=== PATIENT | male | born 1955 | race Caucasian/White ===

== ENCOUNTER → 2018-12-28 | Day surgery (SDC) | payer MEDICAID, OTHER ==
[~2018-12-28] MED LIST: ACET325C5 PO; ALBU2.5V8 NEB; AMOX1TAB58 PO; ASPI81TA59 PO; ATEN50TA PO; BUDE0.5A NEB; CETI10TA16 PO; CETI10TA22 PO; CYAN10005 PO; DEXT15DR5 EACHEYE; DOCU-109 PO; DULO60CA6 PO; FAMO20TA5 PO; FERR325T14 PO; FLUT9.9S NS; GABA600T PO; GUAI600T47 PO; HYDR-3164 PO; HYDROmorphone 2 MG/ML VIAL IV PRN; IV RINGERS,LACTATED 1000ML 1,000 ML IV SCH; LACT1CAP19 PO; LISI10TA2 PO; LOPE1LIQ7 PO; MORPHINE SULFATE 2 MG/ML VIAL. IV PRN; NAPR-683 PO; NEOM1PAC TP; NIFE30TA17 PO; ONDANSETRON PF 4 MG/2 ML VIAL. IV PRN; POLY17PO28 PO; POTA20TA82 PO; PRED50TA PO; PROCHLORPERAZINE 10 MG/2 ML VIAL. IV PRN; PROPOFOL 20 ML IV ONE; PROPOFOL 40 ML IV ONE; SITA100T PO; UMEC1DIS IH; [UNRECOGNIZED DRUG - CODE] TP; fentaNYL PF VIAL 100 MCG/2 ML VIAL IV PRN
[2018-12-28 10:18] VITALS: BP 206/92
--- NOTE | 2018-12-28 11:49 | HP ---
ADMIT DATE: 12/28/2018 REASON: Dysphagia, colorectal screening. HISTORY OF PRESENT ILLNESS: This 63-year-old male with past medical history significant for organic heart disease with stents, CHF, hypertension, COPD, pneumonia, GERD, peripheral neuropathy, anxiety, diabetes, left BKA, is seen with worsening dysphagia, and was attempted to have a dilatation while he was in the hospital, at that time he was on 15 liters of oxygen and this was deferred. He presently is on 4 and is at his baseline. Food does get stuck, mainly solids in the substernal location and with this request an endoscopy and in addition colorectal screening is requested. He has undergone prep. Otherwise, without additional complaints. PAST MEDICAL HISTORY: COPD, hypertension, CHF with stents, GERD, peripheral neuropathy, anxiety, osteoarthrosis, MRSA, diabetes, left BKA. ALLERGIES: None. MEDICATIONS: Include acetaminophen, aspirin, atenolol, budesonide, cetirizine, vitamin B12, Cymbalta, famotidine, ferrous sulfate, fluconazole, gabapentin, guaifenesin, mineral oil, polyethylene glycol and Januvia. SOCIAL HISTORY: He is heavy drinker and smoker. FAMILY HISTORY: Noncontributory. REVIEW OF SYSTEMS: Per records. PHYSICAL EXAMINATION: GENERAL: Reveals a well-nourished, well-developed male who is alert, cooperative man, in mild distress, on 4 L of oxygen. VITAL SIGNS: Pulse is 90, respirations 15. HEENT: Normocephalic and atraumatic head. Pupils and extraocular muscles are not tested. Sclerae anicteric. NECK: Supple. LUNGS: Reveal decreased breath sounds. CARDIOVASCULAR: S1, S2 without S3, S4 or appreciable murmur. ABDOMEN: Reveals soft abdomen, normal bowel sounds without appreciable hepatosplenomegaly. EXTREMITIES: Reveals no cyanosis, clubbing or edema. IMPRESSION: 1. Dysphagia with abnormal esophagram. Stricture, malignancy, Polanco's certainly are in the differential. Recommend upper endoscopy, possible biopsy and dilatation. Risks and benefits have been discussed. The patient understands perforation as well as respiratory compromise even with Anesthesia present with potential for mechanical ventilation and intubation if he should develop respiratory failure. 2. Colorectal screening is warranted. Risks and benefits discussed. The patient is willing to proceed. BASSAM DIEGO MD DR: SANJEEV/radha JOB#: [id number] / [id number] ROLLY Lopez DO
--- NOTE | 2018-12-31 12:06 | PATHOLOGY ---
[facility] Accession Number: [id number] . 01 Material submitted: . esophagus - BIOPSY DISTAL ESOPHAGUS. Modifiers: distal . 01 Clinical history: . Dysphagia, GERD, screening colonoscopy . 02 Diagnosis: Esophageal biopsies, distal esophagus: - Segments of hyperplastic squamous esophageal mucosa consistent with reflux esophagitis, with focal intraepithelial neutrophils and presence of yeast and pseudohyphae consistent with Briseida esophagitis. (JPM:sabas; 12/31/2018) QMS/12/31/2018 . 02 Comment: Sections of the distal esophageal biopsy reveal segments of tangentially oriented hyperplastic squamous esophageal mucosa consistent with reflux esophagitis. There are also focal intraepithelial neutrophils associated with yeast and pseudohyphae consistent with Briseida esophagitis. There is no evidence of Polanco's change, dysplasia, or malignancy. (JPM:sabas; 12/31/2018) . 02 Electronically signed: . Aj Lovell MD, Pathologist NPI- [id number] . 01 Gross description: . Received in formalin labeled "Brody, Marcos, BX distal esophagus, rule out Polanco's," are 3 segments of mckeon soft tissue measuring 1.1 x 1.0 x 0.2 cm in aggregate dimensions and ranging from 0.3 to 0.7 cm in maximum dimension. The specimen is submitted entirely in cassette A1. (TSD; 12/28/2018) TOB/TOB . 02 Pathologist provided ICD-10: B37.81 . 02 CPT . 366829 Specimen Comment: A courtesy copy of this report has been sent to Specimen Comment: [phone], . Specimen Comment: Report sent to / DR CARPENTER Performed at: [address], [place], [place] [id number] MD Justus Bates MD Phone: [phone] Performed at: [address] [id number] MD Aj Lovell MD Phone: [phone]
== END ==
LOC: ENDOS 07:34
PROVIDERS: ATTEND Internal Medicine Gastroenterology
DX: Z12.11 Encounter for screening for malignant neoplasm of colon (principal); K57.30 Diverticulosis of large intestine without perforation or abscess without bleeding; K64.0 First degree hemorrhoids; K21.0 Gastro-esophageal reflux disease with esophagitis; K22.2 Esophageal obstruction; Z98.890 Other specified postprocedural states; Z79.899 Other long term (current) drug therapy
CPT/HCPCS: 43239; 43450; 45378; 82962; J2704; 88305